=== PATIENT | male | born 1995 | race American Indian/Alaskan Native ===

== ENCOUNTER 2016-12-19 13:19 | Emergency (ER) | payer SELFPAY ==
[2016-12-19 13:48] VITALS: BP 132/72
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
--- NOTE | 2016-12-19 16:16 | XRay Report ---
FINAL REPORT PROCEDURE: XR ANKLE 3 LT TECHNIQUE: Left ankle, 3 views HISTORY: pain,LT ANKLE COMPARISON: No prior studies are available for comparison. FINDINGS: No acute fracture or dislocation is seen. The ankle mortise and talar dome are intact. IMPRESSION: No acute abnormality is seen
--- NOTE | 2016-12-19 16:17 | XRay Report ---
FINAL REPORT PROCEDURE: XR SPINE CERVICAL 2-3V TECHNIQUE: Cervical spine radiographs, AP, lateral, and open-mouth odontoid views. CPT 75115 HISTORY: pain,NECK PAIN COMPARISON: No prior studies are available for comparison. FINDINGS: The vertebral body heights and alignment are maintained. The prevertebral soft tissues are within normal limits in thickness. Disc spaces are preserved. No acute osseous abnormality is seen. IMPRESSION: No acute osseous abnormality is identified
--- NOTE | 2016-12-19 16:18 | XRay Report ---
FINAL REPORT PROCEDURE: XR SPINE LUMBOSACRAL 2-3V TECHNIQUE: Lumbar spine, three views HISTORY: pain,BACK PAIN COMPARISON: No prior studies are available for comparison. FINDINGS: The vertebral body heights and alignment are maintained. No scoliosis. Disc spaces are preserved. No focal osseous lesion is seen. IMPRESSION: No acute abnormality is identified
== END 2016-12-19 15:56 | disposition home or self-care (01) ==
LOC: ED 13:19
DX: M54.2 Cervicalgia (principal); M54.5 Low back pain; M25.572 Pain in left ankle and joints of left foot; J45.909 Unspecified asthma, uncomplicated; W18.30XA Fall on same level, unspecified, initial encounter; Y93.E1 Activity, personal bathing and showering; Y99.8 Other external cause status; Y92.002 Bathroom of unspecified non-institutional (private) residence as the place of occurrence of the external cause
CPT/HCPCS: 72040; 72100